=== PATIENT | female | born 1970 | race Caucasian/White ===

== ENCOUNTER 2020-12-30 13:30 | Emergency (ER) | payer OTHER ==
[2020-12-30] MEDS ORDERED: Ondansetron 4 MG/2 ML SDV IVPUSH ONE ×2 (13:54→16:13)
[2020-12-30] MEDS ORDERED: HYDROmorphone 0.5 MG/0.5 ML Syringe IVPUSH ONE ×3 (13:56→16:13)
[2020-12-30] MEDS ORDERED: Sodium Chloride 0.9% 1,000 ML IV SCH (14:00)
[2020-12-30] MEDS: Sodium Chloride 0.9% 10 ML Syringe FLUSH PRN ×2 (14:09→16:03)
--- NOTE | 2020-12-30 14:22 | EDM.PDOC ---
ED HPI GENERAL MEDICAL PROBLEM - General Chief Complaint: Abdominal Pain Stated Complaint: ABDOMINAL AND BACK PAIN Time Seen by Provider: 12/30/20 13:43 Source of Information: Reports: Patient, RN Notes Reviewed History Limitations: Reports: No Limitations - History of Present Illness INITIAL COMMENTS - FREE TEXT/NARRATIVE: Patient is a 50-year-old female who presents to the ER for her lower abdominal pain. Patient states that she had an episode of this pain roughly 10 days ago, but it can went away she saw her primary care provider for routine visit, had some laboratory evaluation including urinalysis and was found not to have a UTI. She notes that no imaging was done at that time. States that everything coming up better however last night she developed a deep ache again, into her right lower quadrant, that extends into her groin. Today however she states that this is gotten quite sharper and is not really gone away. She states that she has had her uterus, appendix and both ovaries taken out but still retains her cervix. She is not having any urinary symptoms, and states that she had a bowel movement this morning that was normal for her. Denying any fevers or chills, cough or shortness of breath, nausea/vomiting/diarrhea. States she also has some minor low back pain as well, she is not sure if this started after the pelvic pain, or before the pelvic pain. States she does have issues with constipation from time to time, but does not think that she is constipated now. 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 ED EXAM, GI/ABD - Physical Exam Exam: See Below Exam Limited By: No Limitations General Appearance: Alert, WD/WN, No Apparent Distress Respiratory/Chest: No Respiratory Distress, Lungs Clear, Normal Breath Sounds, No Accessory Muscle Use, Chest Non-Tender Cardiovascular: Normal Peripheral Pulses, Regular Rate, Rhythm, No Edema GI/Abdominal Exam: Soft, No Distention, No Mass, Tender (RLQ), Abnormal Bowel Sounds (hypoactive x 4 quadrants) Extremities: Normal Inspection, Normal Capillary Refill Neurological: Alert, Oriented, Normal Cognition, No Motor/Sensory Deficits Psychiatric: Normal Affect, Normal Mood Skin Exam: Warm, Dry, Intact, Normal Color, No Rash Course - Vital Signs Last Recorded V/S: Last Vital Signs Temp 98.0 F 12/30/20 13:43 Pulse 58 L 12/30/20 13:43 Resp 20 12/30/20 13:43 BP 167/95 H 12/30/20 13:43 Pulse Ox 100 12/30/20 13:43 - Orders/Labs/Meds Orders: Active Orders 24 hr Category Date Time Status Peripheral IV Care [RC] . DIRECTED Care 12/30/20 13:55 Ordered Abdomen Pelvis w Cont [CT] Stat Exams 12/30/20 13:54 Ordered Sodium Chloride 0.9% [Normal Saline] 1,000 ml Med 12/30/20 14:00 Ordered IV ASDIRECTED Sodium Chloride 0.9% [Saline Flush] Med 12/30/20 13:54 Ordered 10 ml FLUSH ASDIRECTED PRN Peripheral IV Insertion Adult [OM.PC] Stat Oth 12/30/20 13:54 Ordered Medication Orders Sodium Chloride (Normal Saline) 1,000 mls @ 999 mls/hr IV ASDIRECTED YANA Last Admin: 12/30/20 14:09 Dose: 999 mls/hr Documented by: SCHKAT Sodium Chloride (Sodium Chloride 0.9% 10 Ml Syringe) 10 ml FLUSH ASDIRECTED PRN PRN Reason: Keep Vein Open Last Admin: 12/30/20 16:03 Dose: 10 ml Documented by: [email or web address] Admin: 12/30/20 14:09 Dose: 10 ml Documented by: OXANA Labs: Laboratory Tests 12/30/20 12/30/20 12/30/20 Range/Units 14:20 14:20 15:40 WBC 9.12 (3.98-10.04) K/mm3 RBC 4.99 (3.98-5.22) M/mm3 Hgb 15.1 (11.2-15.7) gm/dl Hct 45.0 H (34.1-44.9) % MCV 90.2 (79.4-94.8) fl MCH 30.3 (25.6-32.2) pg MCHC 33.6 (32.2-35.5) g/dl RDW Std Deviation 41.7 (36.4-46.3) fL Plt Count 234 (182-369) K/mm3 MPV 10.3 (9.4-12.3) fl Neut % (Auto) 57.7 (34.0-71.1) % Lymph % (Auto) 33.3 (19.3-51.7) % [place] % (Auto) 7.1 (4.7-12.5) % Eos % (Auto) 1.5 (0.7-5.8) Baso % (Auto) 0.2 (0.1-1.2) % Neut # (Auto) 5.25 (1.56-6.13) K/mm3 Lymph # (Auto) 3.04 (1.18-3.74) K/mm3 [place] # (Auto) 0.65 H (0.24-0.36) K/mm3 Eos # (Auto) 0.14 (0.04-0.36) K/mm3 Baso # (Auto) 0.02 (0.01-0.08) K/mm3 Sodium 139 (136-145) mEq/L Potassium 3.2 L (3.5-5.1) mEq/L Chloride 100 (98-107) mEq/L Carbon Dioxide 22 (21-32) mEq/L Anion Gap 20.2 H (5-15) BUN 9 (7-18) mg/dL Creatinine 0.8 (0.55-1.02) mg/dL Est Cr Clr Drug Dosing 74.02 mL/min Estimated GFR (MDRD) > 60 (>60) mL/min BUN/Creatinine Ratio 11.3 L (14-18) Glucose 102 H (70-99) mg/dL Calcium 8.9 (8.5-10.1) mg/dL Total Bilirubin 0.6 (0.2-1.0) mg/dL AST 14 L (15-37) U/L ALT 29 (14-59) U/L Alkaline Phosphatase 57 (46-116) U/L C-Reactive Protein <0.2 (<1.0) mg/dL Total Protein 7.4 (6.4-8.2) g/dl Albumin 4.3 (3.4-5.0) g/dl Globulin 3.1 gm/dL Albumin/Globulin Ratio 1.4 (1-2) Lipase 84 (73-393) U/L Urine Color Yellow (Yellow) Urine Appearance Clear (Clear) Urine pH 7.0 (5.0-8.0) Ur Specific [place] 1.025 (1.005-1.030) Urine Protein Negative (Negative) Urine Glucose (UA) Negative (Negative) Urine Ketones 3+ H (Negative) Urine Occult Blood 2+ H (Negative) Urine Nitrite Negative (Negative) Urine Bilirubin Negative (Negative) Urine Urobilinogen 0.2 (0.2-1.0) Ur Leukocyte Esterase Negative (Negative) Urine RBC 5-10 H (0-5) /hpf Urine WBC 0-5 (0-5) /hpf Ur Squamous Epith Cells 0-5 (0-5) /hpf Urine Bacteria Few (FEW) /hpf Urine Mucus Few (FEW) /hpf Meds: Medications Generic Name Dose Route Start Last Admin Trade Name Freq PRN Reason Stop Dose Admin Sodium Chloride 1,000 mls @ 999 mls/hr 12/30/20 14:00 12/30/20 14:09 Normal Saline IV 999 mls/hr ASDIRECTED YANA Administration Sodium Chloride 10 ml 12/30/20 13:54 12/30/20 16:03 Sodium Chloride 0.9% 10 Ml Syringe FLUSH 10 ml ASDIRECTED PRN Administration Keep Vein Open Discontinued Medications Generic Name Dose Route Start Last Admin Trade Name Freq PRN Reason Stop Dose Admin Diatrizoate Meglum/Diatrizoate Sod 30 ml 12/30/20 15:48 12/30/20 16:03 Diatrizoate Meglumine/Diatrizoate Sodium 37% 120 Ml Bottle PO 12/30/20 15:49 30 ml ONETIME ONE Administration Hydromorphone HCl 0.5 mg 12/30/20 13:56 12/30/20 14:09 Hydromorphone 0.5 Mg/0.5 Ml Syringe IVPUSH 12/30/20 13:57 0.5 mg ONETIME ONE Administration Hydromorphone HCl 0.5 mg 12/30/20 14:52 12/30/20 15:01 Hydromorphone 0.5 Mg/0.5 Ml Syringe IVPUSH 12/30/20 14:53 0.5 mg ONETIME ONE Administration Hydromorphone HCl 0.5 mg 12/30/20 16:13 12/30/20 16:22 Hydromorphone 0.5 Mg/0.5 Ml Syringe IVPUSH 12/30/20 16:14 0.5 mg ONETIME ONE Administration Sodium Chloride 1,000 mls @ 999 mls/hr 12/30/20 15:25 12/30/20 15:35 Normal Saline IV 12/30/20 16:25 999 mls/hr ONETIME ONE Administration Iopamidol 100 ml 12/30/20 15:48 12/30/20 16:03 Iopamidol 612 Mg/Ml 100 Ml Bottle IVPUSH 12/30/20 15:49 100 ml ONETIME ONE Administration Iopamidol 25 ml 12/30/20 15:48 12/30/20 16:03 Iopamidol 612 Mg/Ml 50 Ml Sdv IVPUSH 12/30/20 15:49 25 ml ONETIME ONE Administration Ondansetron HCl 4 mg 12/30/20 13:54 12/30/20 14:09 Ondansetron 4 Mg/2 Ml Sdv IVPUSH 12/30/20 13:55 4 mg ONETIME ONE Administration Ondansetron HCl 4 mg 12/30/20 16:13 12/30/20 16:20 Ondansetron 4 Mg/2 Ml Sdv IVPUSH 12/30/20 16:14 4 mg ONETIME ONE Administration Promethazine HCl 25 mg 12/30/20 17:08 12/30/20 17:14 Promethazine 25 Mg Tab PO 12/30/20 17:09 25 mg ONETIME ONE Administration - Re-Assessments/Exams Free Text/Narrative Re-Assessment/Exam: 12/30/20 14:22 Patient presents to the ER for her lower abdominal pain. Have ordered an abdomen pelvis CT with IV and oral contrast, we will get an IV started, give her 0.5 mg Dilaudid, 4 mg Zofran and get some IV fluids started. Basic labs to be obtained. 12/30/20 16:44 Patient's labs did result, and CT has been taken. CBC is essentially unremarkable, CMP demonstrates a mildly low potassium at 3.2, and anion gap elevated at 20.2, patient did get 2 L of IV fluid for this, she has been having ongoing pain and has received a total of 1.5 mg IV Dilaudid, and 8 mg IV Zofran during her stay at this time. Urinalysis demonstrates 2+ occult blood, and 5-10 RBCs per high-power field. Official radiology read is pending on her CT, but there is some sort of pelvic abnormality by my eye, unsure if it is more of a solid mass type effect versus other etiology at this time. Nursing staff did also let me note that the patient has been having some slight vaginal bleeding issues associated with this that she did not tell me initially. 12/30/20 17:05 CT report has come back, there is a large soft tissue mass centered on the cervix/vaginal cuff. MACHINE REBUILDER malignancy is suspected with a MACHINE REBUILDER evaluation highly recommended. The pelvic mass measures 8.3 x 6.9 x 7.0 cm. It does seem to be intimately related with the posterior wall of the bladder however it does not appear to be bladder origin. There are also multiple liver lesions as described, nonspecific in nature however in light of the findings in the pelvis, they are suspect for possible mets. MRI of the liver with contrast enhancement is recommended for further evaluation. Departure - Departure Time of Disposition: 17:26 Disposition: Home, Self-Care 01 Condition: Good Clinical Impression: Pelvic mass in female, Nausea alone Abdominal pain Qualifiers: Abdominal location: lower abdomen, unspecified Qualified Code(s): R10.30 - Lower abdominal pain, unspecified - Discharge Information *PRESCRIPTION DRUG MONITORING PROGRAM REVIEWED*: Yes *COPY OF PRESCRIPTION DRUG MONITORING REPORT IN PATIENT ANITA: No Prescriptions: oxyCODONE HCl/Acetaminophen [Percocet 10-325 mg Tablet] 1 tab PO Q6H #20 tablet Promethazine [Phenergan] 25 mg PO Q6H PRN #30 tab PRN Reason: Nausea Instructions: Pelvic Mass, Female Referrals: PCP,Not In Area [Primary Care Provider] - Forms: ED Department Discharge Additional Instructions: You were evaluated in ER today for your lower abdomen pain. Laboratory evaluation demonstrated some slight dehydration, and you did receive some IV fluids, IV pain meds, and IV nausea meds as well as p.o. nausea medications. CT done at today's visit demonstrated a pelvic mass, that is roughly the size of a softball, highly and strongly recommend that you follow-up with MACHINE REBUILDER, when you get to [place] for further work-up. Biopsies of the area are highly indicated. There are some areas on the liver as well, that they suggest you get an MRI for further evaluation, you indicated that you were aware of lesions on your liver, but in light of the pelvic findings, I would highly and strongly recommend that you do indeed get the abdomen MRI with contrast for further evaluation. You have been provided with a CD of your CT scans, as well as the CT report for your MACHINE REBUILDER/family practice provider's review. You have been provided with 2 prescriptions, 1 for pain medication oxycodone/acetaminophen 10/325 mg, and Phenergan. Please take each every 6 hours as needed for further pain and nausea. These medications have been electronically prescribed to the [place] pharmacy located in the [employer] [facility] at [address] [facility]. in [facility], please go there and pick these prescriptions up, before you had back to [place]. Do not hesitate to return to the ER at any time if symptoms change or worsen, Sepsis Event Note (ED) - Evaluation Sepsis Screening Result: No Definite Risk - Focused Exam Vital Signs: Vital Signs Temp Pulse Resp BP Pulse Ox 12/30/20 13:43 98.0 F 58 L 20 167/95 H 100 - My Orders Last 24 Hours: My Active Orders 12/30/20 13:54 Abdomen Pelvis w Cont [CT] Stat Sodium Chloride 0.9% [Saline Flush] 10 ml FLUSH ASDIRECTED PRN Peripheral IV Insertion Adult [OM.PC] Stat 12/30/20 13:55 Peripheral IV Care [RC] . DIRECTED 12/30/20 14:00 Sodium Chloride 0.9% [Normal Saline] 1,000 ml IV ASDIRECTED - Assessment/Plan Last 24 Hours: My Active Orders 12/30/20 13:54 Abdomen Pelvis w Cont [CT] Stat Sodium Chloride 0.9% [Saline Flush] 10 ml FLUSH ASDIRECTED PRN Peripheral IV Insertion Adult [OM.PC] Stat 12/30/20 13:55 Peripheral IV Care [RC] . DIRECTED 12/30/20 14:00 Sodium Chloride 0.9% [Normal Saline] 1,000 ml IV ASDIRECTED
[2020-12-30] MEDS ORDERED: Sodium Chloride 0.9% 1,000 ML IV ONE (15:25)
[2020-12-30] MEDS ORDERED: Diatrizoate Meglumine/Diatrizoate Sodium 37% 120 ML Bottle PO ONE (15:48)
[2020-12-30] MEDS ORDERED: Iopamidol 612 MG/ML 50 ML SDV IVPUSH ONE (15:48)
[2020-12-30] MEDS ORDERED: Iopamidol 612 MG/ML 100 ML Bottle IVPUSH ONE (15:48)
[2020-12-30] MEDS ORDERED: Promethazine 25 MG Tab PO ONE (17:08)
--- NOTE | 2020-12-31 09:31 | CT ---
CT abdomen and pelvis Technique: Multiple axial sections were obtained from above the dome of the diaphragm inferiorly through the pubic symphysis. Reconstructed coronal and sagittal images were obtained. Intravenous contrast was utilized. No oral contrast has been given. Comparison: No prior abdominal imaging is available. Findings: Small portion of the visualized lung bases show nothing acute. Multiple small low density lesions are seen within both right and left lobes of the liver. Larger low density areas are seen within the right lobe close to the left lobe measuring up to 3.6 cm. Gallbladder contains no calcified gallstones. Spleen size is normal. Adrenal glands show no nodule. No abnormality is seen within the pancreas. Kidneys show symmetric contrast enhancement without hydronephrosis or mass. Abdominal aorta shows no aneurysm. There are several mildly enlarged left-sided retroperitoneal lymph nodes being seen. Largest lymph node measures approximately 1.5 cm. No mesenteric abnormalities are seen. Appendix is not visualized. Abnormal uterus is seen within the pelvis. There appears to be a soft tissue abnormality within the center of the uterus. No discrete pelvic mass or adenopathy is seen. Delayed images show contrast within the distal ureters and within the bladder. Bone window settings were reviewed which show scattered degenerative change within the spine. No acute osseous abnormality is appreciated. Impression: 1. Abnormal appearing uterus. At this point difficult to exclude neoplasm. GRAPHIC MANAGER malignancy consult is recommended. 2. Several mildly prominent retroperitoneal lymph nodes are seen. These could be metastatic. 3. Liver lesions are noted. Most of these appear to be due to cysts but difficult to exclude additional poorly defined metastatic lesions. MRI is recommended to further evaluate. Diagnostic code #9 I agree with preliminary report from [facility] finalized on 12/30/20, 5:58 PM CDT, code 1
== END 2020-12-30 17:45 | disposition home or self-care (01) ==
LOC: JD.ED 13:30
DX: R10.31 Right lower quadrant pain (principal); R11.0 Nausea; R19.00 Intra-abdominal and pelvic swelling, mass and lump, unspecified site; I10 Essential (primary) hypertension; Z91.040 Latex allergy status; Z86.16 Personal history of COVID-19; Z79.899 Other long term (current) drug therapy
CPT/HCPCS: 36415; 74177; 80053; 81001; 83690; 85025; 86140; 96374; 96375; 96376; 99284; J1170; J2405; J7030; J8597; Q9963; Q9967